=== PATIENT | female | born 1955 | race Hispanic/Latino ===

== ENCOUNTER 2017-12-25 19:19 | Emergency (ER) | payer MEDICAID ==
[2017-12-25 19:48] LABS: BASOPHILS % (AUTO) 0.9 % (0.0-5.0); EOSINOPHILS % (AUTO) 1.2 % (0.0-8.0); HEMATOCRIT 38.1 % (36-48); LYMPHOCYTES % (AUTO) 21.2 % (21.0-51.0); MEAN CORPUSCULAR HEMOGLOBIN 32.6 pg (27.0-33.0); MEAN CORPUSCULAR HGB CONC 35.5 g/dL (32.0-36.0); MONOCYTES % (AUTO) 14.5 % (3.0-13.0); NEUTROPHILS % (AUTO) 62.2 % (40.0-77.0); NUCLEATED RED BLOOD CELLS 0.1 % (0.0-0.19); PLATELET COUNT (AUTO) 132 K/uL (130-400); RED BLOOD CELL COUNT(AUTO) 4.15 MIL/uL (4.00-5.50); RED CELL DISTRIBUTION WIDTH 13.1 % (11.0-15.5); WHITE BLOOD COUNT (AUTO) 3.6 K/uL (4.8-10.8)
[2017-12-25] MEDS ORDERED: ONDANSETRON HCL 4 MG/2 ML VIAL ONE (19:48)
[2017-12-25 19:55] LABS: APPEARANCE,URINE Clear (CLEAR); BILIRUBIN,URINE Negative (NEGATIVE); COLOR,URINE Yellow (YELLOW); GLUCOSE, URINE (UA) 500 mg/dL (NEGATIVE); KETONES,URINE Negative (NEGATIVE); LEUKOCYTE ESTERASE ,URINE Negative (NEGATIVE); NITRATE,URINE Negative (NEGATIVE); OCCULT BLOOD,URINE Negative (NEGATIVE); PH,URINE 5.5 (5.0-8.0); PROTEIN,URINE Negative (NEGATIVE)
[2017-12-25 20:17] LABS: CREATININE 0.9 mg/dL (0.5-1.5); POTASSIUM 3.2 mmol/L (3.5-5.1)
[2017-12-25 20:18] LABS: BACTERIA,URINE Rare /HPF (None Seen); RBC,URINE 0-1 /HPF (0-1); WBC,URINE 0-1 /HPF (0-1)
[2017-12-25 20:19] LABS: MUCUS,URINE Rare LPF (None Seen); SQUAMOUS EPITHELIAL CELL,UR Rare /LPF (0-2)
[2017-12-25 20:22] LABS: ALBUMIN 3.8 g/dL (3.5-5.0); BILIRUBIN,TOTAL 0.4 mg/dL (0.2-1.0); TOTAL PROTEIN, SERUM 7.7 g/dL (6.0-8.3)
[2017-12-25] MEDS ORDERED: POTASSIUM CHLORIDE 20 MEQ ERTAB PO ONE (20:53)
== END 2017-12-25 22:52 | disposition home or self-care (01) ==
LOC: EDH 19:19
DX: J06.9 Acute upper respiratory infection, unspecified (principal); R11.10 Vomiting, unspecified; E87.6 Hypokalemia; E11.9 Type 2 diabetes mellitus without complications; I10 Essential (primary) hypertension; E78.5 Hyperlipidemia, unspecified; J45.909 Unspecified asthma, uncomplicated; Z98.890 Other specified postprocedural states
CPT/HCPCS: 36415; 71045; 80053; 81001; 82150; 83690; 85025; 87804 ×2; 93005; 96374; 99285; J2405

== ENCOUNTER 2019-07-26 16:04 | Emergency (ER) | payer MEDICARE ==
[2019-07-26] MEDS ORDERED: CEFTRIAXONE SODIUM 2 GM VIAL ONE (16:24)
[2019-07-26 16:25] LABS: BASOPHILS % (AUTO) 0.2 % (0.0-5.0); HEMATOCRIT 32.3 % (36-48); LYMPHOCYTES % (AUTO) 5.4 % (21.0-51.0); MEAN CORPUSCULAR HEMOGLOBIN 30.3 pg (27.0-33.0); MEAN CORPUSCULAR HGB CONC 34.6 g/dL (32.0-36.0); MEAN CORPUSCULAR VOLUME 87.8 fL (79-99); NEUTROPHILS % (AUTO) 93.4 % (40.0-77.0); PLATELET COUNT (AUTO) 106 K/uL (130-400); RED BLOOD CELL COUNT(AUTO) 3.68 MIL/uL (4.00-5.50); WHITE BLOOD COUNT (AUTO) 3.5 K/uL (4.8-10.8)
[2019-07-26] MEDS ORDERED: SODIUM CHLORIDE 0.9% 50 ML IV ONE (16:25)
[2019-07-26 16:33] LABS: CREATININE 0.9 mg/dL (0.5-1.5); POTASSIUM 3.3 mmol/L (3.5-5.1)
[2019-07-26 16:36] LABS: INR 1.11 (0.85-1.15); PARTIAL THROMBOPLASTIN TIME 27.5 SEC (26.3-35.5); PROTHROMBIN TIME 11.6 SEC (9.6-11.6)
[2019-07-26 16:44] LABS: ALBUMIN 2.9 g/dL (3.5-5.0); BILIRUBIN,TOTAL 0.9 mg/dL (0.2-1.0); TOTAL PROTEIN, SERUM 6.9 g/dL (6.0-8.3); TROPONIN I 0.07 ng/mL (0.00-0.06)
[2019-07-26] MEDS ORDERED: ACETAMINOPHEN EXTRA STRENGTH 500 MG TABLET ONE (16:47)
[2019-07-26 17:37] LABS: APPEARANCE,URINE Clear (CLEAR); BILIRUBIN,URINE Negative (NEGATIVE); COLOR,URINE Yellow (YELLOW); GLUCOSE, URINE (UA) >=1000 mg/dL (NEGATIVE); KETONES,URINE 15 mg/dL (NEGATIVE); LEUKOCYTE ESTERASE ,URINE Negative (NEGATIVE); NITRATE,URINE Negative (NEGATIVE); OCCULT BLOOD,URINE Negative (NEGATIVE); PROTEIN,URINE Negative (NEGATIVE)
[2019-07-26] MEDS ORDERED: SODIUM CHLORIDE 0.9% 1000ML 1,000 ML IV ONE ×2 (17:58→18:59)
[2019-07-26 18:00] LABS: BACTERIA,URINE Rare /HPF (None Seen); MUCUS,URINE Few LPF (None Seen); RBC,URINE 0-1 /HPF (0-1); WBC,URINE 0-1 /HPF (0-1)
== END 2019-07-26 20:27 | disposition home or self-care (01) ==
LOC: EDH 16:04
DX: K52.9 Noninfective gastroenteritis and colitis, unspecified (principal); E86.0 Dehydration; J45.909 Unspecified asthma, uncomplicated; E78.5 Hyperlipidemia, unspecified; I10 Essential (primary) hypertension; E11.9 Type 2 diabetes mellitus without complications
CPT/HCPCS: 36415; 71045; 74176; 80053; 81001; 82550; 83605 ×2; 83874; 84484; 85025; 85610; 85730; 87040 ×2; 87077 ×2; 87088; 87186 ×2; 87804 ×2; 93005; 96361; 96374; 99285; J0696; J7030 ×2

== ENCOUNTER 2019-09-11 10:19 | Inpatient (IN) | payer MEDICARE ==
[~2019-09-11] VITALS: Ht 154.9 cm; Wt 77.5 kg
[2019-09-11] MEDS ORDERED: MAG HYDROX/AL HYDROX/SIMETH ES 30 ML SUSP UDCUP ONE (10:39)
[2019-09-11] MEDS ORDERED: LIDOCAINE HCL 2% VISCOUS 15 ML UDCUP ONE (10:39)
[2019-09-11] MEDS ORDERED: KETOROLAC TROMETHAMINE 15MG/ML ONE (10:39)
[2019-09-11 10:40] LABS: BASOPHILS % (AUTO) 0.4 % (0.0-5.0); EOSINOPHILS % (AUTO) 0.1 % (0.0-8.0); HEMATOCRIT 32.1 % (36-48); LYMPHOCYTES % (AUTO) 7.9 % (21.0-51.0); MEAN CORPUSCULAR HEMOGLOBIN 28.5 pg (27.0-33.0); MEAN CORPUSCULAR HGB CONC 33.4 g/dL (32.0-36.0); MEAN CORPUSCULAR VOLUME 85.2 fL (79-99); MONOCYTES % (AUTO) 4.9 % (3.0-13.0); NEUTROPHILS % (AUTO) 86.7 % (40.0-77.0); NUCLEATED RED BLOOD CELLS 0.1 % (0.0-0.19); PLATELET COUNT (AUTO) 62 K/uL (130-400); RED BLOOD CELL COUNT(AUTO) 3.76 MIL/uL (4.00-5.50); RED CELL DISTRIBUTION WIDTH 15.7 % (11.0-15.5); WHITE BLOOD COUNT (AUTO) 17.9 K/uL (4.8-10.8)
[2019-09-11] MEDS ORDERED: FAMOTIDINE/PF 20 MG/2 ML VIAL IV ONE (10:40)
[2019-09-11] MEDS ORDERED: SODIUM CHLORIDE 0.9% 1000ML 1,000 ML IV ONE (10:40)
[2019-09-11 10:52] LABS: POTASSIUM 4.3 mmol/L (3.5-5.1)
[2019-09-11 10:57] LABS: ALBUMIN 1.9 g/dL (3.5-5.0); BILIRUBIN,TOTAL 1.8 mg/dL (0.2-1.0); TOTAL PROTEIN, SERUM 6.7 g/dL (6.0-8.3)
[2019-09-11] MEDS ORDERED: LEVOFLOXACIN 500 MG/D5W 100 ML 100 ML ONE (11:38)
[2019-09-11] MEDS ORDERED: METRONIDAZOLE 500MG/100ML BAG 100 ML ONE (12:50)
[2019-09-11 13:05] LABS: APPEARANCE,URINE Cloudy (CLEAR); BILIRUBIN,URINE Small (NEGATIVE); COLOR,URINE Dark Yellow (YELLOW); GLUCOSE, URINE (UA) >=1000 mg/dL (NEGATIVE); KETONES,URINE Trace mg/dL (NEGATIVE); LEUKOCYTE ESTERASE ,URINE Trace (NEGATIVE); NITRATE,URINE Negative (NEGATIVE); OCCULT BLOOD,URINE Negative (NEGATIVE); PROTEIN,URINE Negative (NEGATIVE)
[2019-09-11 13:25] LABS: BACTERIA,URINE Many /HPF (None Seen); RBC,URINE 0-1 /HPF (0-1)
[2019-09-11] MEDS ORDERED: IOHEXOL-350 75 ML VIAL IV ONE (13:55)
[2019-09-11] MEDS ORDERED: ZOSYN 3.375GM+NS 50ML 50 ML IV ONE (21:51)
[2019-09-11] MEDS ORDERED: ACETAMINOPHEN 325 MG TAB PO PRN (22:00)
[2019-09-11 22:12] VITALS: BP 134/88
--- NOTE | 2019-09-11 22:12 | NUR ---
ADMISSION NOTE: Admitted to floor per stretcher from ER. Fully awake, responsive but looking weak. AOx3. Placed in bed comfortably. VS checked and recorded. Assessment done. (See CPOE flow chart for full assessment). Plan of care initiated. Pain med given as ordered as pt complaints of abdominal pain with PS of 8/10. Maintained on NPO as ordered. For EGD with MAC in AM as ordered. field operations supervisor aware. No apparent distress noted. Monitored and cared for.
[2019-09-11] MEDS: HYDROMORPHONE HCL 0.5 MG/0.5 ML ML IVP PRN (22:42)
[2019-09-11] MEDS: LACTATED RINGERS 1000ML 1,000 ML IV SCH (22:44)
[2019-09-11] MEDS ORDERED: CIPR-245 PO (22:57)
[2019-09-11] MEDS ORDERED: ONDA8TAB11 PO (22:57)
[2019-09-11] MEDS ORDERED: FURO20TA6 PO (23:05)
[2019-09-11] MEDS ORDERED: FLUT15.845 NS (23:05)
[2019-09-11] MEDS ORDERED: PIOG30TA70 PO (23:05)
[2019-09-11] MEDS ORDERED: LISI2.5T2 PO (23:05)
[2019-09-11] MEDS ORDERED: CETI10TA57 PO (23:05)
[2019-09-11] MEDS ORDERED: ALBU6.7H9 IH (23:05)
[2019-09-11] MEDS ORDERED: ACET-2743 PO (23:05)
[2019-09-12] VITALS (20 sets, daily range): BP systolic 117–184; BP diastolic 76–98
[2019-09-12] MEDS: ZOSYN 3.375GM+NS 50ML 50 ML IV SCH ×3 (04:59→21:19)
[2019-09-12 05:26] LABS: BASOPHILS % (AUTO) 0.2 % (0.0-5.0); EOSINOPHILS % (AUTO) 0.2 % (0.0-8.0); HEMATOCRIT 32.9 % (36-48); LYMPHOCYTES % (AUTO) 9.8 % (21.0-51.0); MEAN CORPUSCULAR HEMOGLOBIN 28.6 pg (27.0-33.0); MEAN CORPUSCULAR HGB CONC 33.2 g/dL (32.0-36.0); MEAN CORPUSCULAR VOLUME 86.1 fL (79-99); MONOCYTES % (AUTO) 5.6 % (3.0-13.0); NEUTROPHILS % (AUTO) 84.2 % (40.0-77.0); PLATELET COUNT (AUTO) 100 K/uL (130-400); RED BLOOD CELL COUNT(AUTO) 3.82 MIL/uL (4.00-5.50); RED CELL DISTRIBUTION WIDTH 16.1 % (11.0-15.5); WHITE BLOOD COUNT (AUTO) 18.1 K/uL (4.8-10.8)
[2019-09-12 05:55] LABS: ALBUMIN 1.8 g/dL (3.5-5.0); BILIRUBIN,TOTAL 1.8 mg/dL (0.2-1.0); CREATININE 0.9 mg/dL (0.5-1.5); MAGNESIUM 2.7 mg/dL (1.80-2.40); PHOSPHORUS 3.5 mg/dL (2.5-4.9); POTASSIUM 4.5 mmol/L (3.5-5.1); TOTAL PROTEIN, SERUM 7.1 g/dL (6.0-8.3)
[2019-09-12] MEDS: LACTATED RINGERS 1000ML 1,000 ML IV SCH ×2 (06:20→19:19)
[2019-09-12] MEDS: HYDROMORPHONE HCL 0.5 MG/0.5 ML ML IVP PRN ×4 (06:24→21:21)
--- NOTE | 2019-09-12 11:39 | NUR ---
PT UPDATE Pt taken off the floor for EGD with Dr. Leach, Pt status stable.
[2019-09-12] MEDS ORDERED: PROPOFOL 10 MG/ML 20ML VIAL IV ONE (12:10)
--- NOTE | 2019-09-12 13:00 | NUR ---
NASRIN NOTE PT OFF THE FLOOR AT [facility]. WILL ATTEMPT TO GET IA LATER OR IN AM Addendum: 09/12/19 at 1808 by PATRICIA KEVIN RN CM Amended: Links added.
[2019-09-12] MEDS ORDERED: DEXTROSE 50%-WATER 50 ML DISP.SYRIN IV PRN (13:15)
[2019-09-12] MEDS ORDERED: POTASSIUM CHLORIDE 20MEQ/100ML 100 ML IV PRN ×2 (13:15)
[2019-09-12] MEDS ORDERED: GLUCAGON 1MG KIT 1 MG ML IM PRN (13:15)
[2019-09-12] MEDS: IPRATROPIUM/ALBUTEROL SULFATE 3 ML SOLUTION IH PRN ×2 (13:44→23:56)
--- NOTE | 2019-09-12 16:30 | NUR ---
1545 had daughter sign IM Letter,faxed IM Letter faxed to [phone] and placed in chart under consent tab
[2019-09-12] MEDS: INSULIN HUMULIN R 100 UNIT/ML 3ML SQ SCH ×2 (16:56→21:20)
[2019-09-12] MEDS ORDERED: PEG 3350/NA SULF,BICARB,CL/KCL 4000 ML SOLN PO SCH (17:15)
[2019-09-12] MEDS ORDERED: LACTULOSE 20 GM/30 ML UDCUP PO SCH (17:15)
[2019-09-12] MEDS ORDERED: MAGNESIUM CITRATE 296 ML SOLUTION PO SCH (17:15)
[2019-09-12] MEDS: HYDRALAZINE HCL 20 MG/ML VIAL IV PRN ×2 (19:18→23:52)
[2019-09-12] MEDS: ONDANSETRON HCL 4 MG/2 ML VIAL IVP PRN (21:19)
[2019-09-13] VITALS (12 sets, daily range): BP systolic 150–182; BP diastolic 65–102
[2019-09-13] MEDS: ONDANSETRON HCL 4 MG/2 ML VIAL IVP PRN ×2 (02:42→18:45)
[2019-09-13] MEDS: HYDROMORPHONE HCL 0.5 MG/0.5 ML ML IVP PRN ×2 (02:44→18:43)
[2019-09-13 05:01] LABS: HEMATOCRIT 33.3 % (36-48); MEAN CORPUSCULAR HGB CONC 33.5 g/dL (32.0-36.0); MEAN CORPUSCULAR VOLUME 86.7 fL (79-99); PLATELET COUNT (AUTO) 134 K/uL (130-400); RED BLOOD CELL COUNT(AUTO) 3.84 MIL/uL (4.00-5.50); RED CELL DISTRIBUTION WIDTH 16.2 % (11.0-15.5); WHITE BLOOD COUNT (AUTO) 15.8 K/uL (4.8-10.8)
[2019-09-13 05:25] LABS: ALBUMIN 1.6 g/dL (3.5-5.0); BILIRUBIN,TOTAL 2.3 mg/dL (0.2-1.0); CREATININE 0.8 mg/dL (0.5-1.5); TOTAL PROTEIN, SERUM 6.6 g/dL (6.0-8.3)
[2019-09-13] MEDS: ZOSYN 3.375GM+NS 50ML 50 ML IV SCH ×3 (05:30→21:14)
[2019-09-13] MEDS: LACTATED RINGERS 1000ML 1,000 ML IV SCH ×2 (05:30→13:59)
[2019-09-13] MEDS: INSULIN HUMULIN R 100 UNIT/ML 3ML SQ SCH ×4 (06:31→21:47)
[2019-09-13] MEDS: IPRATROPIUM/ALBUTEROL SULFATE 3 ML SOLUTION IH PRN (07:12)
--- NOTE | 2019-09-13 07:20 | NUR ---
Called Dr. Leach to report that pt. BM is not that clear yet. Also reported that pt was vomiting and was able to consumed only more than 50% of Golytely solution. Following orders were given: 1. Insert NGT now and attached to LIS for 1/2 hr ( 30 min) and then do the ff: a. Give lactulose 30 ml via NGT at 8am, 10am and 12nn b. Place pt on Clear liquid diet via NGT and NPO at midnight c. Golytely solution via NGT at 1500 d. High colonic tap water enema at 2100 and 0500 e. Re-schedule the Colonoscopy with STAN mccracken (09/14/19) at 1300. - [employer] Inspector Ms. LUNA made aware. - Endorsed to AM shift RN.
--- NOTE | 2019-09-13 07:44 | NUR ---
rigging supervisor notified pt Colonoscopy with MAC to be re-scheduled kaykay (09/14/19) at 1300.
[2019-09-13] MEDS ORDERED: LACTULOSE 20 GM/30 ML UDCUP PO SCH ×3 (08:00→12:00)
[2019-09-13] MEDS: LACTULOSE 20 GM/30 ML UDCUP NG SCH ×3 (08:00→12:00)
[2019-09-13] MEDS ORDERED: LACTULOSE 20 GM/30 ML UDCUP NG SCH ×2 (10:00→12:00)
[2019-09-13 10:12] LABS: HEPATITIS A ANTIBODY IGM Negative (Negative); HEPATITIS B CORE IGM Negative (Negative); HEPATITIS Bs ANTIGEN SCREEN P Negative (Negative)
[2019-09-13] MEDS: FAMOTIDINE/PF 20 MG/2 ML VIAL IV SCH (11:05)
[2019-09-13 11:07] LABS: INR 1.18 (0.85-1.15); PROTHROMBIN TIME 12.3 SEC (9.6-11.6)
[2019-09-13] MEDS ORDERED: PEG 3350/NA SULF,BICARB,CL/KCL 4000 ML SOLN NG SCH (15:00)
--- NOTE | 2019-09-13 17:04 | NUR ---
Oncology consult placed Oncology consult with Dr. Hunt, spoke with Emeli @ [facility] pending to see pt.
--- NOTE | 2019-09-13 22:30 | NUR ---
TAP H2O ENEMA ENEMA DONE ,WITH GOOD RESULT, EFFLUENT GREENISH WITH MINIMAL PARTICLES NOTED SOLID PARTICLES NOTED,TOLERATED WELL Addendum: 09/14/19 at 0637 by CESAR HOLLAND RN RN Amended: Links added.
[2019-09-14] VITALS (22 sets, daily range): BP systolic 123–171; BP diastolic 70–93
[2019-09-14] MEDS: HYDRALAZINE HCL 20 MG/ML VIAL IV PRN ×3 (00:12→08:45)
[2019-09-14] MEDS: LACTATED RINGERS 1000ML 1,000 ML IV SCH ×3 (00:21→18:59)
[2019-09-14] MEDS ORDERED: IPRATROPIUM 0.5 MG/2.5 ML INH IH PRN (00:30)
[2019-09-14] MEDS ORDERED: IPRATROPIUM 0.5 MG/2.5 ML INH IH ONE (00:31)
[2019-09-14] MEDS: MORPHINE SULFATE 2 MG/ML 1ML SYG IVP PRN ×2 (00:57→18:58)
[2019-09-14] MEDS: ONDANSETRON HCL 4 MG/2 ML VIAL IVP PRN ×2 (01:57→08:56)
[2019-09-14] MEDS: ZOSYN 3.375GM+NS 50ML 50 ML IV SCH ×3 (04:24→20:30)
--- NOTE | 2019-09-14 05:45 | NUR ---
COLON PREP TAP H2O ENEMA DONE ,TOLERATED WELL , LARGE [place] LIGHT GREENISH TO LIGHT YELLOW EFFLUENT , NO SOLID PARTICULATE MATTER NOTED Addendum: 09/14/19 at 0639 by CESAR HOLLAND RN RN Amended: Links added.
[2019-09-14 06:10] LABS: HEMATOCRIT 32.2 % (36-48); MEAN CORPUSCULAR HEMOGLOBIN 28.8 pg (27.0-33.0); MEAN CORPUSCULAR VOLUME 87.4 fL (79-99); PLATELET COUNT (AUTO) 201 K/uL (130-400); RED BLOOD CELL COUNT(AUTO) 3.68 MIL/uL (4.00-5.50); RED CELL DISTRIBUTION WIDTH 16.3 % (11.0-15.5); WHITE BLOOD COUNT (AUTO) 18.1 K/uL (4.8-10.8)
[2019-09-14] MEDS: INSULIN HUMULIN R 100 UNIT/ML 3ML SQ SCH ×3 (06:19→20:48)
[2019-09-14 06:21] LABS: CREATININE 0.7 mg/dL (0.5-1.5); POTASSIUM 3.6 mmol/L (3.5-5.1)
[2019-09-14] MEDS: FAMOTIDINE/PF 20 MG/2 ML VIAL IV SCH (08:43)
--- NOTE | 2019-09-14 12:45 | NUR ---
PT UPDATE Pt taken off the floor for colonoscopy. Pt condition stable, Nursing will continue to monitor.
[2019-09-14] MEDS ORDERED: LIDOCAINE HCL-MPF 2% 5ML VIAL ONE (13:07)
[2019-09-14] MEDS ORDERED: PROPOFOL 10 MG/ML 20ML VIAL IV ONE (13:07)
--- NOTE | 2019-09-14 18:57 | NUR ---
SPOKE AGAIN TO PT- DECLINING SNF. DAUGHTER STATS MOVED FORM OUT OF TOWN TO STAY WITH MOM FOR SEVERAL MONTHS AND WITH THE HELP OF THE PROVIDER WILL LOOK AFTER HER. Addendum: 09/14/19 at 1857 by PATRICIA KEVIN RN CM Amended: Links added.
[2019-09-15] VITALS (7 sets, daily range): BP systolic 129–164; BP diastolic 79–90
[2019-09-15] MEDS: LACTATED RINGERS 1000ML 1,000 ML IV SCH ×2 (03:05→12:44)
[2019-09-15] MEDS: MORPHINE SULFATE 2 MG/ML 1ML SYG IVP PRN ×2 (03:05→11:23)
[2019-09-15] MEDS: ZOSYN 3.375GM+NS 50ML 50 ML IV SCH ×3 (04:42→20:49)
[2019-09-15 05:55] LABS: MEAN CORPUSCULAR HEMOGLOBIN 28.6 pg (27.0-33.0); MEAN CORPUSCULAR HGB CONC 33.1 g/dL (32.0-36.0); MEAN CORPUSCULAR VOLUME 86.5 fL (79-99); PLATELET COUNT (AUTO) 204 K/uL (130-400); RED BLOOD CELL COUNT(AUTO) 3.24 MIL/uL (4.00-5.50); RED CELL DISTRIBUTION WIDTH 16.1 % (11.0-15.5); WHITE BLOOD COUNT (AUTO) 10.7 K/uL (4.8-10.8)
[2019-09-15 06:10] LABS: ALBUMIN 1.5 g/dL (3.5-5.0); BILIRUBIN,DIRECT 0.8 mg/dL (0.0-0.3); BILIRUBIN,TOTAL 1.4 mg/dL (0.2-1.0); CREATININE 0.6 mg/dL (0.5-1.5); POTASSIUM 3.2 mmol/L (3.5-5.1); TOTAL PROTEIN, SERUM 6.1 g/dL (6.0-8.3)
[2019-09-15] MEDS: POTASSIUM CHLORIDE 10% ELIXIR 20 MEQ/15 ML UDCUP PO PRN ×3 (06:26→18:03)
[2019-09-15] MEDS: INSULIN HUMULIN R 100 UNIT/ML 3ML SQ SCH ×4 (06:50→20:52)
[2019-09-15] MEDS: FAMOTIDINE/PF 20 MG/2 ML VIAL IV SCH (08:59)
[2019-09-15] MEDS ORDERED: ACETAMINOPHEN EXTRA STRENGTH 500 MG TABLET PO PRN (17:30)
[2019-09-16] MEDS: LACTATED RINGERS 1000ML 1,000 ML IV SCH ×2 (02:07→12:36)
[2019-09-16 03:50] VITALS: BP 131/77
[2019-09-16] MEDS: ZOSYN 3.375GM+NS 50ML 50 ML IV SCH ×3 (04:53→20:30)
[2019-09-16 05:08] LABS: HEMATOCRIT 27.6 % (36-48); MEAN CORPUSCULAR HEMOGLOBIN 28.9 pg (27.0-33.0); MEAN CORPUSCULAR HGB CONC 33.7 g/dL (32.0-36.0); MEAN CORPUSCULAR VOLUME 85.9 fL (79-99); PLATELET COUNT (AUTO) 213 K/uL (130-400); RED BLOOD CELL COUNT(AUTO) 3.21 MIL/uL (4.00-5.50); RED CELL DISTRIBUTION WIDTH 16.3 % (11.0-15.5)
[2019-09-16 05:34] LABS: ALBUMIN 1.5 g/dL (3.5-5.0); BILIRUBIN,DIRECT 0.8 mg/dL (0.0-0.3); BILIRUBIN,TOTAL 1.4 mg/dL (0.2-1.0); CREATININE 0.6 mg/dL (0.5-1.5); MAGNESIUM 1.8 mg/dL (1.80-2.40); POTASSIUM 3.5 mmol/L (3.5-5.1); TOTAL PROTEIN, SERUM 5.9 g/dL (6.0-8.3)
[2019-09-16] MEDS ORDERED: MAGNESIUM 2GM PREMIX 50ML 50 ML IV PRN (06:15)
[2019-09-16] MEDS: INSULIN HUMULIN R 100 UNIT/ML 3ML SQ SCH ×4 (06:26→21:39)
[2019-09-16] MEDS: POTASSIUM CHLORIDE 20 MEQ ERTAB PO PRN ×2 (06:39→09:18)
[2019-09-16] MEDS: FUROSEMIDE 20 MG TABLET PO SCH (09:17)
[2019-09-16] MEDS: LISINOPRIL 2.5 MG TABLET PO SCH (09:18)
[2019-09-16] MEDS: CETIRIZINE HCL 5 MG TABLET PO SCH (09:18)
[2019-09-16] MEDS: FAMOTIDINE/PF 20 MG/2 ML VIAL IV SCH (09:18)
[2019-09-16] MEDS: HYDROMORPHONE HCL 0.5 MG/0.5 ML ML IVP PRN ×2 (09:19→18:16)
[2019-09-16 11:00] VITALS: BP 133/76
[2019-09-16 16:00] VITALS: BP 139/80
[2019-09-16 20:00] VITALS: BP 136/70
[2019-09-16 23:54] VITALS: BP 137/72
[2019-09-17 03:33] VITALS: BP 116/62
[2019-09-17] MEDS: ZOSYN 3.375GM+NS 50ML 50 ML IV SCH ×2 (04:38→12:12)
[2019-09-17 05:10] LABS: HEMATOCRIT 27.6 % (36-48); MEAN CORPUSCULAR HEMOGLOBIN 28.2 pg (27.0-33.0); MEAN CORPUSCULAR HGB CONC 32.6 g/dL (32.0-36.0); MEAN CORPUSCULAR VOLUME 86.4 fL (79-99); PLATELET COUNT (AUTO) 253 K/uL (130-400); RED BLOOD CELL COUNT(AUTO) 3.19 MIL/uL (4.00-5.50); RED CELL DISTRIBUTION WIDTH 16.2 % (11.0-15.5)
[2019-09-17 05:24] LABS: CREATININE 0.6 mg/dL (0.5-1.5); POTASSIUM 3.6 mmol/L (3.5-5.1)
[2019-09-17] MEDS: LACTATED RINGERS 1000ML 1,000 ML IV SCH (05:56)
[2019-09-17] MEDS: INSULIN HUMULIN R 100 UNIT/ML 3ML SQ SCH ×2 (05:57→12:12)
[2019-09-17] MEDS: POTASSIUM CHLORIDE 20 MEQ ERTAB PO PRN (05:58)
[2019-09-17 07:30] VITALS: BP 136/81
[2019-09-17] MEDS: CETIRIZINE HCL 5 MG TABLET PO SCH (09:03)
[2019-09-17] MEDS: FAMOTIDINE/PF 20 MG/2 ML VIAL IV SCH (09:04)
[2019-09-17] MEDS: FUROSEMIDE 20 MG TABLET PO SCH (09:04)
[2019-09-17] MEDS: LISINOPRIL 2.5 MG TABLET PO SCH (09:04)
[2019-09-17] MEDS: HYDROMORPHONE HCL 0.5 MG/0.5 ML ML IVP PRN ×2 (09:13→14:46)
[2019-09-17 11:00] VITALS: BP 141/81
[2019-09-17] MEDS ORDERED: PANT40TA25 PO (16:30)
[2019-09-17] MEDS ORDERED: LEVO500T2 PO (16:30)
--- NOTE | 2019-09-17 17:30 | NUR ---
DISCHARGE PATIENT GIVEN DISCHARGE INSTRUCTIONS AND EDUCATION ON FOLLOW UP APPOINTMENTS AND NEW PRESCRIBED MEDICATIONS. PATIENT VERBALIZED UNDERSTANDING ON ALL EDUCATION GIVEN VIA TEACH BACK. IV DISCONTINUED,CATHETER INTACT. PATIENT LEFT VIA WHEELCHAIR. FAMILY AT SIDE. NO DISTRESS NOTED UPON DISCHARGE. NO CONCERNS VOICED.
== END 2019-09-17 18:15 | disposition home or self-care (01) | DRG 394 ==
LOC: EDH 10:19 → EDHIP 17:31 → OBSVTOIN 17:31 → 3AH 22:10
PROVIDERS: ADMIT Internal Medicine Pulmonary Disease; ATTEND Internal Medicine Pulmonary Disease
PROC: 0DBH8ZX Excision of Cecum, Via Natural or Artificial Opening Endoscopic, Diagnostic (ICD-10-PCS; principal; 2019-09-11)
DX: D12.0 Benign neoplasm of cecum (principal); K63.3 Ulcer of intestine; R18.8 Other ascites; K92.2 Gastrointestinal hemorrhage, unspecified; K80.20 Calculus of gallbladder without cholecystitis without obstruction; D69.6 Thrombocytopenia, unspecified; K74.60 Unspecified cirrhosis of liver; R16.1 Splenomegaly, not elsewhere classified; D64.9 Anemia, unspecified; D73.4 Cyst of spleen; F19.90 Other psychoactive substance use, unspecified, uncomplicated; K55.20 Angiodysplasia of colon without hemorrhage; K29.60 Other gastritis without bleeding; K21.0 Gastro-esophageal reflux disease with esophagitis; K64.9 Unspecified hemorrhoids
CPT/HCPCS: 36415; 43239; 45380; 74177; 74181; 76705; 78226; 80048; 80053; 80074; 80076; 81001; 82140; 82248; 82948; 83605; 83690; 83735; 83883; 84100; 84156; 85025; 85027; 85610; 85730; 86334; 87040; 87088; 88305; 93005; 94640; 94664; 97039; 99291; A4606; A9537; G0378; J0360; J1170; J1815; J1885; J1956; J2405; J2543; J2704; J3475; J3490; J7030; J7120; Q9967